=== PATIENT | female | born 1955 | race Caucasian/White ===

== ENCOUNTER 2017-07-06 10:40 | Outpatient (CLI) | payer OTHER, BC ==
--- NOTE | 2017-07-06 13:55 | ULT ---
ULTRASOUND OF ABDOMEN: Date: 06/05/17 HISTORY: Abnormal liver enzymes. FINDINGS: The liver demonstrates diffusely increased echogenicity with a focal area of sparing adjacent to the gallbladder. These changes are consistent with fatty infiltration. No definite focal mass or intrah epatic ductal dilatation is seen. The spleen is normal measuring 10.4 cm in length. No gallstones, g allbladder wall thickening, or pericholecystic fluid is seen. The common duct measures 7.0 mm in patrick meter. The visualized portions of the pancreas, aorta, and IVC are unremarkable. No hydronephrosis i s seen on either side. There is a 2.6 x 1.6 x 1.2 cm hypoechoic focal mass-like area in the left med ial kidney. No free fluid is seen in the abdomen. IMPRESSION: 1. Fatty liver. 2. No evidence of cholelithiasis. 3. Probable left renal mass. RECOMMENDATION: CT scan of the abdomen and pelvis with and without IV contrast using the renal mass protocol is ezra mmended. CODE T. POS: [facility]
== END 2017-07-06 10:41 | disposition home or self-care (01) ==
LOC: ULT 10:40
PROVIDERS: ATTEND Family Medicine
DX: R74.8 Abnormal levels of other serum enzymes (principal); K76.0 Fatty (change of) liver, not elsewhere classified
CPT/HCPCS: 76700

== ENCOUNTER 2017-10-15 12:51 | Outpatient (CLI) | payer OTHER, BC ==
--- NOTE | 2017-10-25 13:24 | MMO ---
BILATERAL SCREENING MAMMOGRAM: COMPARISON: December 27, 2012. Examination is interpreted with the assistance of CAD. FINDINGS: There are scattered fibroglandular elements bilaterally. There is no evidence of a dominant mass, lazaro spicious clustering of microcalcifications, or architectural distortion. There is benign-appearing p unctate calcification within the left breast. IMPRESSION: BI-RADS 2 - benign findings. Annual screening mammography is recommended. BIRADS 2: Benign Finding(s) Routine annual screening mammography (for women over age 40) POS: [facility]
== END 2017-10-15 12:52 | disposition home or self-care (01) ==
LOC: SCSMAMMO 12:51
PROVIDERS: ATTEND Family Medicine
DX: Z12.31 Encounter for screening mammogram for malignant neoplasm of breast (principal)
CPT/HCPCS: 77067

== ENCOUNTER 2018-10-25 12:54 | Outpatient (CLI) | payer BC ==
--- NOTE | 2018-10-25 14:04 | MMO ---
BILATERAL MAMMOGRAMS: DATE: 10/25/18 HISTORY: Screening mammography. COMPARISON: Multiple exams back to 12/27/12. FINDINGS: Fatty replaced tissue. No dominant mass or suspicious calcifications. The study was evaluated with the assistance of computer-aided detection. IMPRESSION: BIRADS 1: Negative Suggest routine follow-up. POS: [facility]
== END 2018-10-25 12:55 | disposition home or self-care (01) ==
LOC: SCSMAMMO 12:54
PROVIDERS: ATTEND Family Medicine
DX: Z12.31 Encounter for screening mammogram for malignant neoplasm of breast (principal)
CPT/HCPCS: 77067